=== PATIENT | male | born 1940 | race Two or more races ===

== ENCOUNTER 2020-06-05 09:10 | Outpatient (CLI) | payer OTHER | END 2020-06-05 09:13 | disposition home or self-care (01) | LOC: SONOGRAMA 09:10 | PROVIDERS: ATTEND Pathology Anatomic Pathology & Clinical Pathology | DX: E04.2 Nontoxic multinodular goiter (principal); E07.89 Other specified disorders of thyroid; D34 Benign neoplasm of thyroid gland ==

== ENCOUNTER → 2021-01-08 | Outpatient (CLI) | payer OTHER | END | disposition home or self-care (01) | LOC: SONOGRAMA 10:05 | PROVIDERS: ATTEND Pathology Anatomic Pathology & Clinical Pathology | DX: D34 Benign neoplasm of thyroid gland (principal); E04.1 Nontoxic single thyroid nodule; E06.5 Other chronic thyroiditis ==